=== PATIENT | male | born 1980 | race Caucasian/White ===

== ENCOUNTER → 2020-11-28 | Outpatient (CLI) | payer BC | END | disposition home or self-care (01) | LOC: LABWHC1 09:14 | PROVIDERS: ATTEND Emergency Medicine | DX: Z20.822 Contact with and (suspected) exposure to COVID-19 (principal) | CPT/HCPCS: U0003; C9803; U0005 ==

== ENCOUNTER 2021-08-25 17:07 | Emergency (ER) | payer BC ==
[2021-08-25 17:33] VITALS: BP 129/83; PULSE 104; RESP 18; TEMP 98.2
[2021-08-25] MEDS ORDERED: MORPHINE SULFATE 4 MG/ML SYRINGE IM STA (17:53)
--- NOTE | 2021-08-25 18:03 | ED ---
Fall HPI - General Chief Complaint: Fall Stated Complaint: Fall,Lt Shoulder Pain Time Seen by Provider: 08/25/21 17:34 Source: patient Mode of arrival: ambulatory - History of Present Illness Initial Comments: This 41-year-old male percents emergency department after slipping and falling on ice, falling onto his left shoulder yesterday around 4 PM. Patient states he went to get out of his truck and when he went to check the door he slipped on ice and hit his left shoulder directly on ice. Patient denies hitting his head, loss of consciousness or being on any blood thinners. Patient states he has never had any injury to the shoulder in the past and he has not had any prior surgery to this left shoulder in his past. Patient denies any chest pain, shortness of breath, abdominal pain, change in bowel or bladder, change in vision, headache or dizziness, lightheadedness. - Related Data Previous Rx's Medication Instructions Recorded Amoxicillin/Potassium Clav 1 tab PO Q12HR #20 tab 10/16/15 [Augmentin 875-125 Tablet] methylPREDNISolone [Medrol Dose 4 mg PO DIRECTED #1 pack 10/16/15 Pack] Allergies Allergy/AdvReac Type Severity Reaction Status Date / Time No Known Allergies Allergy Verified 08/25/21 17:32 Review of Systems ROS Statement: Those systems with pertinent positive or pertinent negative responses have been documented in the HPI. ROS Other: All systems not noted in ROS Statement are negative. Past Medical History Past Medical History: No Reported History History of Any Multi-Drug Resistant Organisms: None Reported Past Surgical History: No Surgical Hx Reported Past Psychological History: No Psychological Hx Reported Smoking Status: Current some day smoker Past Alcohol Use History: Occasional Past Drug Use History: None Reported General Exam Limitations: no limitations General appearance: alert, in no apparent distress Head exam: Present: atraumatic, normocephalic Eye exam: Present: normal appearance, PERRL, EOMI Pupils: Present: normal accommodation ENT exam: Present: normal exam, mucous membranes moist Neck exam: Present: normal inspection, full ROM. Absent: tenderness, meningismus, lymphadenopathy Respiratory exam: Present: normal lung sounds bilaterally. Absent: respiratory distress, wheezes, rales, rhonchi, stridor Cardiovascular Exam: Present: regular rate, normal rhythm, normal heart sounds. Absent: systolic murmur, diastolic murmur, rubs, gallop, clicks GI/Abdominal exam: Present: soft, normal bowel sounds. Absent: distended, tenderness, guarding, rebound, rigid Extremities exam: Absent: other (Patient has full range of motion of right arm. Patient unable to extend his arm laterally or anteriorly due to pain. Patient is able to straighten and flex his elbow. Subtle left shouldered deformity noted. Patient with sensation intact. Radial and ulnar pulses palpable. ) Left General: Present: other (Left posterior and anterior shoulder tender to light palpation. Tender to palpation over the left AC joint. No pain to palpation over clavicle. Acromion process of the left shoulder tender to palpation. No swelling, erythema or warmth noted) Back exam: Present: full ROM. Absent: tenderness, CVA tenderness (R), CVA tenderness (L), vertebral tenderness Neurological exam: Present: alert, oriented X3, CN II-XII intact, normal gait Psychiatric exam: Present: normal affect, normal mood Skin exam: Present: warm, dry, intact, normal color. Absent: rash Course Vital Signs 08/25/21 17:30 Temperature 98.2 F Pulse Rate 104 H Respiratory 18 Rate Blood Pressure 129/83 O2 Sat by Pulse 96 Oximetry - Reevaluation(s) Reevaluation #1: 08/25/21 19:30 He states the morphine helped and a lot of his pain has been relieved. He states when he tries to move his arm is still causes pain. Informed him to keep arm still and without movement until sling is placed. 08/25/21 19:45 Procedures - Orthopedic Splinting/Casting Injury #1 Side: left Upper Extremity Injury Location: shoulder Upper Extremity Immobilizer: sling/shoulder immobilizer Medical Decision Making - Medical Decision Making This 41-year-old male presents to emergency department after slipping and falling on ice yesterday, landing on his left shoulder. Left shoulder x-ray impression: AC joint ligamentous tear. There is also probably a tear of coracoclavicular ligament. No fracture seen. Glenohumeral joint is intact. There is malalignment of the AC joint that measures 10 mm. IM morphine given the patient here which relieved his pain. Patient placed in a shoulder/arm immobilizer. Patient to follow-up with orthopedics in next 24-48 hours. Strict return precautions were discussed. Patient verbally agreed to plan. Patient sent home in stable condition. Case discussed with my attending, Dr. Nicole. Disposition Clinical Impression: Acromioclavicular (AC) joint injury, Acromioclavicular joint separation, Pain of left shoulder joint on movement, Left shoulder pain Disposition: HOME SELF-CARE Condition: Stable Instructions (If sedation given, give patient instructions): Acromioclavicular Separation (ED), Shoulder Pain (ED) Additional Instructions: Return to the emergency department with any concerning, new, or worsening symptoms. Please follow up with orthopedics in the next 24-48 hours. Keep arm immobilized with sling in place until you see orthopedics. Take medication as directed. Is patient prescribed a controlled substance at d/c from ED?: No Referrals: Jazmyne Garcia MD [Primary Care Provider] - 1-2 days Osbaldo Byrd DO [Doctor of Osteopathic Medicine] - 1-2 days Time of Disposition: 19:21
--- NOTE | 2021-08-25 18:47 | XR ---
EXAMINATION TYPE: XR shoulder complete LT DATE OF EXAM: 08/25/2021 COMPARISON: NONE HISTORY: Pain TECHNIQUE: 3 views FINDINGS: There is no fracture. Glenohumeral joint is intact. There is malalignment of the AC joint t hat measures 10 mm. IMPRESSION: AC joint ligamentous tear. There is also probably a tear of the coracoclavicular ligament . No fracture seen.
[2021-08-25] MEDS ORDERED: ACET/COD 300 MG/30 MG STARTER PACK 6 TAB BTL PO STA (19:21)
== END 2021-08-25 20:10 | disposition home or self-care (01) ==
LOC: EC 17:07
DX: S43.102A Unspecified dislocation of left acromioclavicular joint, initial encounter (principal); F17.200 Nicotine dependence, unspecified, uncomplicated; W01.0XXA Fall on same level from slipping, tripping and stumbling without subsequent striking against object, initial encounter
CPT/HCPCS: 99283; 96372; 73030; L3670; J2270